=== PATIENT | female | born 1950 | race Caucasian/White ===

== ENCOUNTER 2017-03-19 18:49 | Emergency (ER) | payer MEDICARE, BC ==
[2017-03-19 18:58] VITALS: BP 158/89
[2017-03-19] MEDS ORDERED: BACITRACIN OINT TOP STA (20:35)
--- NOTE | 2017-03-19 20:38 | ED Physician Documentation ---
PD HPI UPPER EXT INJURY - Stated complaint Stated Complaint: L INDEX LAC - Chief complaint Chief Complaint: Ext Problem - History obtained from History obtained from: Patient - History of Present Illness Location: Left, Finger (index) Type of injury: Laceration Where injury occurred: Home Timing - onset: How many hours ago (Just prior to arrival.) - Additonal information Additional information: The patient is a 66-year-old female who cut her left index finger while slicing onions at home just prior to arrival. She denies any other injuries. She is right-hand dominant. Tetanus status is up-to-date. Review of Systems Constitutional: denies: Fever Skin: reports: Laceration (s) Neurologic: denies: Focal weakness, Numbness PD PAST MEDICAL HISTORY - Past Medical History Cardiovascular: Atrial fibrillation Endocrine/Autoimmune: None - Past Surgical History Past Surgical History: No - Present Medications Home Medications: Ambulatory Orders Medication Instructions Recorded Confirmed Levothyroxine [Synthroid] 25 mcg PO DAILY 03/19/17 03/19/17 - Allergies Allergies/Adverse Reactions: Allergies Allergy/AdvReac Type Severity Reaction Status Date / Time amoxicillin Allergy Rash Verified 03/19/17 18:58 - Social History Does the pt smoke?: No Smoking Status: Never smoker Does the pt drink ETOH?: Yes Does the pt have substance abuse?: No - Immunizations Immunizations are current?: Yes PD ED PE NORMAL - Vitals Vital signs reviewed: Yes (initially hypertensive.) - General General: Alert and oriented X 3, Well developed/nourished - HEENT HEENT: Atraumatic - Respiratory Respiratory: No respiratory distress - Derm Derm: No rash - Extremities Extremities: Other (There is a 1 cm laceration on the volar pad of the left index finger. Distal neurovascular is intact.) - Neuro Neuro: Alert and oriented X 3, No motor deficit, No sensory deficit Results - Vitals Vitals: Oxygen O2 Source Room air Procedures - Laceration (location) left index finger Length in cm: 1 Wound type: Curved, Into subcut fat Neurovascular status: Sensory intact, Motor intact, Vascular intact Anesthesia: Marcaine 0.25% with epi Wound Preparation: Hibiclens Skin layer closure: Nylon, Interrupted, Size #-0 - enter number (5), Sutures - enter # (4) Other: Patient tolerated well, No complications, Neurovascular intact, Tetanus UTD Complexity: Simple PD MEDICAL DECISION MAKING - ED course Complexity details: considered differential, d/w patient ED course: The patient's presentation is significant for simple laceration to the volar pad of the left index finger. Treatment in the emergency department included application of local anesthetic, thorough cleaning of the wound, repair with interrupted sutures, and application of antibiotic ointment and wound dressing. I discussed with her the expected course of healing, wound care and timing for suture removal, as well as potentially worrisome signs or symptoms that should prompt reevaluation in the emergency department. Departure - Departure Disposition: 01 Home, Self Care Clinical Impression: Finger laceration Qualifiers: Encounter type: initial encounter Qualified Code(s): S61.219A - Laceration without foreign body of unspecified finger without damage to nail, initial encounter Condition: Stable Instructions: ED Laceration Hand Follow-Up: MELECIO LEBRON MD [Primary Care Provider] - Comments: 1. Keep the wound clean and, and apply antibiotic ointment daily. 2. He can use Tylenol or ibuprofen if needed for discomfort. 3. Followup for suture removal in about 10 days. 4. Return to the emergency department if you develop any sign of infection, or otherwise worsening symptoms. Discharge Date/Time: 03/19/17 20:46
== END 2017-03-19 20:46 | disposition home or self-care (01) ==
LOC: ED 18:49
DX: S61.211A Laceration without foreign body of left index finger without damage to nail, initial encounter (principal); W26.0XXA Contact with knife, initial encounter; Y93.G1 Activity, food preparation and clean up; Y92.009 Unspecified place in unspecified non-institutional (private) residence as the place of occurrence of the external cause
CPT/HCPCS: 12001; 99282; 99283

== ENCOUNTER 2020-01-21 07:37 | Outpatient (CLI) | payer MEDICARE, BC ==
[2020-01-21 08:00] LABS: BASOPHILS % (AUTO) 0.8 %; EOSINOPHILS # (AUTO) 0.1 10^3/uL (0.0-0.7); HGB - HEMOGLOBIN 14.5 g/dL (12.0-16.0); LYMPHOCYTES # (AUTO) 2.1 10^3/uL (1.5-3.5); LYMPHOCYTES % (AUTO) 43.5 %; MEAN CORPUSCULAR HGB CONC 32.7 g/dL (32.0-36.0); MEAN CORPUSCULAR VOLUME 91.9 fL (81.0-99.0); MEAN PLATELET VOLUME 9.4 fL (7.9-10.8); MONOCYTES # (AUTO) 0.5 10^3/uL (0.0-1.0); MONOCYTES % (AUTO) 10.4 %; NEUTROPHILS % (AUTO) 42.1 %; PLT - PLATELET COUNT 266 10^3/uL (130-450); RED BLOOD COUNT 4.83 10^6/uL (4.20-5.40); RED CELL DISTRIBUTION WIDTH 13.3 % (12.0-15.0); WHITE BLOOD COUNT 4.7 x10^3/uL (4.8-10.8)
[2020-01-21 09:00] LABS: FREE T4 (FREE THYROXINE) 1.3 ng/dL (0.58-1.64)
[2020-01-21 09:05] LABS: ALBUMIN 3.8 g/dL (3.2-5.5); ALBUMIN/GLOBULIN RATIO 1.4 (1.0-2.2); ALKALINE PHOSPHATASE 50 IU/L (42-121); ALT ALANINE AMINOTRANSFERASE 20 IU/L (10-60); AST ASPARTATE AMINOTRANSFERASE 24 IU/L (10-42); BILIRUBIN,TOTAL 0.8 mg/dL (0.2-1.0); BUN - BLOOD UREA NITROGEN 23 mg/dL (6-20); CALCIUM 9.6 mg/dL (8.5-10.3); CARBON DIOXIDE - CO2 33 mmol/L (21-32); CHLORIDE 100 mmol/L (101-111); CHOL/HDL RATIO 2.6 (<4.4); CHOLESTEROL 172 mg/dL; CREATININE 0.9 mg/dL (0.4-1.0); GLUCOSE 107 mg/dL (70-100); HDL CHOLESTEROL 65 mg/dL; LDL CHOLESTEROL,CALCULATED 96 mg/dL; LDL/HDL RATIO 1.5 (<4.4); SODIUM 140 mmol/L (135-145); TOTAL PROTEIN 6.5 g/dL (6.7-8.2); VLDL CHOLESTEROL 11 mg/dL
[2020-01-21 09:26] LABS: HB2 TOTAL 14.9 g/dL; HEMOGLOBIN A1C 0.58 g/dL; HEMOGLOBIN A1C % 5.7 % (4.6-6.2)
== END 2020-01-21 07:38 | disposition home or self-care (01) ==
LOC: LAB 07:37
PROVIDERS: ATTEND Nurse Practitioner
DX: Z00.00 Encounter for general adult medical examination without abnormal findings (principal); R73.03 Prediabetes; E78.5 Hyperlipidemia, unspecified; E03.9 Hypothyroidism, unspecified; D72.819 Decreased white blood cell count, unspecified
CPT/HCPCS: 36415; 80053; 80061; 83036; 83721; 84439; 84443; 85025

== ENCOUNTER 2020-02-03 09:44 | Emergency (ER) | payer MEDICARE, BC ==
[2020-02-03 10:17] LABS: BASOPHILS % (AUTO) 0.6 %; EOSINOPHILS # (AUTO) 0.1 10^3/uL (0.0-0.7); EOSINOPHILS % (AUTO) 1.3 %; HGB - HEMOGLOBIN 16.1 g/dL (12.0-16.0); LYMPHOCYTES # (AUTO) 1.9 10^3/uL (1.5-3.5); LYMPHOCYTES % (AUTO) 28.5 %; MEAN CORPUSCULAR HEMOGLOBIN 29.2 pg (27.0-31.0); MEAN CORPUSCULAR HGB CONC 32.4 g/dL (32.0-36.0); MEAN CORPUSCULAR VOLUME 90.2 fL (81.0-99.0); MEAN PLATELET VOLUME 9.7 fL (7.9-10.8); MONOCYTES # (AUTO) 0.8 10^3/uL (0.0-1.0); MONOCYTES % (AUTO) 11.4 %; NEUTROPHILS # (AUTO) 3.9 10^3/uL (1.5-6.6); NEUTROPHILS % (AUTO) 57.9 %; PLT - PLATELET COUNT 304 10^3/uL (130-450); RED BLOOD COUNT 5.51 10^6/uL (4.20-5.40); RED CELL DISTRIBUTION WIDTH 13.2 % (12.0-15.0); WHITE BLOOD COUNT 6.7 x10^3/uL (4.8-10.8)
--- NOTE | 2020-02-03 10:22 | ED Physician Documentation ---
PD HPI CHEST PAIN - Stated complaint Stated Complaint: CHEST PRESSURE - Chief complaint Chief Complaint: Cardiac - History obtained from History obtained from: Patient - History of Present Illness Timing - onset: Today, Last night Timing - onset during: Rest Timing - duration: Hours (last couple hours last night and again this morning. No symptoms now.) Timing - details: Abrupt onset, Now resolved Quality: Pressure, Tightness, Aching. No: Sharp, Tearing, Pain Location: Substernal, Left chest Radiation: No: Jaw, Neck, Back Improved by: No: Rest Worsened by: No: Exertion (has been walking regularly without symptoms.) Associated symptoms: No: Shortness of air, Diaphoresis, Nausea, Feeling faint / dizzy, General Weakness, Palpitations Similar symptoms before: Diagnosis (had similar related to atrial fib in the past. No recent symptoms of it. Sees Dr. Antonio in [place]. Had stress test few years ago with similar. Had atrial fib episode that was cardioverted, and subsequent follow up and testing by Cardiology was fine. Has routine appt with Cardiology next Monday.) Review of Systems Constitutional: denies: Fever, Chills Nose: denies: Rhinorrhea / runny nose, Congestion Throat: denies: Sore throat Cardiac: denies: Palpitations, Pedal edema, Calf pain Respiratory: denies: Dyspnea, Cough GI: denies: Abdominal Pain, Abdominal Swelling, Nausea, Vomiting, Diarrhea, Bloody / black stool Musculoskeletal: denies: Extremity swelling Neurologic: denies: Generalized weakness, Focal weakness, Numbness, Near syncope, Altered mental status, Headache, Head injury Endocrine: denies: Weight loss, Easy bruising / bleeding PD PAST MEDICAL HISTORY - Past Medical History Cardiovascular: High cholesterol, Atrial fibrillation (few years ago, not recent) Respiratory: Sleep apnea, CPAP use Neuro: Alzhiemer's Endocrine/Autoimmune: HyPOthyroidism GI: Hepatitis 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 : None HEENT: None Psych: None Musculoskeletal: None Derm: None - Past Surgical History Past Surgical History: No - Present Medications Home Medications: Ambulatory Orders Medication Instructions Recorded Confirmed Aspirin 81 mg PO DAILY 02/03/20 02/03/20 Atorvastatin Calcium 10 mg PO DAILY PM 02/03/20 02/03/20 Calcium Carbonate/Vitamin D3 1 each PO DAILY 02/03/20 02/03/20 [Calcium 500-Vit D3 200 Tablet] Levothyroxine Sodium 100 mcg PO DAILY 02/03/20 02/03/20 Magnesium Oxide [Magnesium] 250 mg PO DAILY 02/03/20 02/03/20 - Allergies Allergies/Adverse Reactions: Allergies Allergy/AdvReac Type Severity Reaction Status Date / Time amoxicillin Allergy Rash Verified 03/19/17 18:58 - Social History Does the pt smoke?: No Smoking Status: Former smoker Does the pt drink ETOH?: Yes Does the pt have substance abuse?: No - Immunizations Immunizations are current?: Yes - POLST Patient has POLST: No PD ED PE NORMAL - Vitals Vital signs reviewed: Yes - General General: Alert and oriented X 3, No acute distress, Well developed/nourished - HEENT HEENT: Moist mucous membranes, Pharynx benign - Neck Neck: Supple, no meningeal sign, No adenopathy - Cardiac Cardiac: RRR, No murmur - Respiratory Respiratory: Clear bilaterally - Abdomen Abdomen: Soft, Non tender - Derm Derm: Normal color, Warm and dry - Extremities Extremities: No tenderness to palpate, Normal ROM s pain, No edema, No calf tenderness / cord - Neuro Neuro: Alert and oriented X 3, No motor deficit, Normal speech Results - Vitals Vitals: Vital Signs - 24 hr 02/03/20 02/03/20 02/03/20 10:01 10:09 11:07 Temperature 37.1 C Heart Rate 64 62 70 Respiratory 22 16 14 Rate Blood Pressure 176/86 H 159/95 H 133/78 H O2 Saturation 99 98 97 Oxygen O2 Source Room air - EKG (time done) 09:52 Rate: Rate (enter#) (64) Rhythm: NSR [place]: Normal Intervals: Normal ME QRS: Normal, Poor R wave progression Ischemia: Normal ST segments, T wave inversion (anterior leads but concordant with main QRS, so related to poor r-wave progression). No: ST elevation c/w ischemia, ST depression - Labs Labs: Laboratory Tests 02/03/20 02/03/20 02/03/20 10:03 10:03 10:03 WBC 6.7 RBC 5.51 H Hgb 16.1 H Hct 49.7 H MCV 90.2 MCH 29.2 MCHC 32.4 RDW 13.2 Plt Count 304 MPV 9.7 Neut # (Auto) 3.9 Lymph # (Auto) 1.9 [place] # (Auto) 0.8 Eos # (Auto) 0.1 Baso # (Auto) 0.0 Absolute Nucleated RBC 0.00 Nucleated RBC % 0.0 Sodium 138 Potassium 4.1 Chloride 98 L Carbon Dioxide 29 Anion Gap 11.0 BUN 25 H Creatinine 0.9 Estimated GFR (MDRD) 62 L Glucose 100 Calcium 10.1 Total Bilirubin 0.8 AST 22 ALT 18 Alkaline Phosphatase 56 Troponin I High Sens 3.4 Total Protein 7.3 Albumin 4.1 Globulin 3.2 Albumin/Globulin Ratio 1.3 Lipase 35 - Rads (name of study) chest xray Radiology: Prelim report reviewed (no acute process), See rad report PD MEDICAL DECISION MAKING - ED course Complexity details: considered differential (no exertional symptoms recently. Had rest CP for couple hours last ngiht and again this morning, with normal labs. Consider non cardiac, potential atrial fib episode (though she says her pulse oximeter showed HR 70s at time of symptoms).), d/w patient Departure - Departure Disposition: 01 Home, Self Care Clinical Impression: Chest pressure Condition: Stable Record reviewed to determine appropriate education?: Yes Instructions: ED Chest Pain Atypical Unkn Cause Follow-Up: Lopez Valles ARNP [Primary Care Provider] - Cecilia Antonio MD [Provider Admit Priv/Credential] - Comments: No signs of heart attack or obvious heart/lung cause for your symptoms based on your EKG chest x-ray and blood tests. Your blood pressure was elevated a bit first coming in but not necessarily high enough I would think that be the primary cause of your symptoms. See if you have any further episodes. Try to correlate heart rate and blood pressure if you can during the symptoms and see if it is consistently elevated blood pressure with those. 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 Otherwise stay well-hydrated and regular activity and see if any other symptoms develop such as cough or fevers or pain with eating or anything else to indicate other cause. Discharge Date/Time: 02/03/20 11:19
--- NOTE | 2020-02-03 10:30 | XRAY Report ---
Reason: Chest Pain Procedure Date: 02/03/2020 Accession Number: [id number] / [id number] Procedure: XR - Chest 1 View X-Ray CPT Code: 55001 Final Report FULL RESULT: PROCEDURE: Chest 1 View X-Ray INDICATIONS: Chest Pain TECHNIQUE: One view of the chest was acquired. COMPARISON: FINDINGS: Surgical changes and devices: None. Lungs and pleura: No pleural effusions or pneumothorax. Lungs are clear. Mediastinum: Mediastinal contours appear normal. Heart size is normal. Bones and chest wall: No suspicious bony lesions. Overlying soft tissues appear unremarkable. IMPRESSION: No acute process. Reviewed by: Torey Chavez MD on 02/03/2020 10:25 AM PDT Approved by: Torey Chavez MD on 02/03/2020 10:25 AM PDT Station ID: [id number]
[2020-02-03 10:33] LABS: ALBUMIN 4.1 g/dL (3.2-5.5); ALBUMIN/GLOBULIN RATIO 1.3 (1.0-2.2); BILIRUBIN,TOTAL 0.8 mg/dL (0.2-1.0); CALCIUM 10.1 mg/dL (8.5-10.3); CREATININE 0.9 mg/dL (0.4-1.0); TOTAL PROTEIN 7.3 g/dL (6.7-8.2)
[2020-02-03 11:08] VITALS: BP 133/78
== END 2020-02-03 11:19 | disposition home or self-care (01) ==
LOC: ED 09:44
DX: R07.89 Other chest pain (principal); R03.0 Elevated blood-pressure reading, without diagnosis of hypertension; I44.4 Left anterior fascicular block; G30.9 Alzheimer's disease, unspecified; F02.80 Dementia in other diseases classified elsewhere, unspecified severity, without behavioral disturbance, psychotic disturbance, mood disturbance, and anxiety; Z87.891 Personal history of nicotine dependence; Z79.82 Long term (current) use of aspirin
CPT/HCPCS: 36415; 71045; 80053; 83690; 84484; 85025; 93005; 99284

== ENCOUNTER 2022-02-19 08:00 | Outpatient (CLI) | payer MEDICARE, BC ==
--- NOTE | 2022-02-19 14:52 | XRAY Report ---
PROCEDURE: Chest 2 View X-Ray INDICATIONS: ACTIVE COVID/COUGH TECHNIQUE: 2 view(s) of the chest. COMPARISON: None. FINDINGS: Surgical changes and devices: None. Lungs and pleura: Hyperinflation and chronic interstitial changes noted. Mediastinum: Mediastinal contours are normal. Heart size is normal. Bones and chest wall: No suspicious bony abnormalities. Soft tissues appear unremarkable. IMPRESSION: Hyperinflation and chronic interstitial changes. No infiltrate Reviewed by: Aurelio Brown MD on 02/19/2022 1:50 PM AKDT Approved by: Aurelio Brown MD on 02/19/2022 1:50 PM AKDT Station ID: [id number]
== END 2022-02-19 23:59 | disposition home or self-care (01) ==
LOC: DI.S 08:00
PROVIDERS: ATTEND Registered Nurse
DX: R05.9 Cough, unspecified (principal)
CPT/HCPCS: 71046; U0004

== ENCOUNTER 2022-03-26 08:00 | Outpatient (CLI) | payer MEDICARE, BC | END 2022-03-26 23:59 | disposition home or self-care (01) | LOC: LAB.S 08:00 | PROVIDERS: ATTEND Physician Assistant | DX: N10 Acute pyelonephritis (principal) | CPT/HCPCS: 87086 ==

== ENCOUNTER 2022-07-20 14:18 | Outpatient (CLI) | payer MEDICARE, BC ==
--- NOTE | 2022-07-20 16:55 | XRAY Report ---
PROCEDURE: Ribs w/PA Chest LT INDICATIONS: CONTUSION OF LEFT FRONT WALL OF THORAX TECHNIQUE: 2 views of the left ribs were acquired, along with a single view chest. COMPARISON: Chest radiograph dated 02/19/2022 and 02/03/2020 FINDINGS: Surgical changes and devices: None. Bones and chest wall: No fractures or dislocations. No suspicious bony lesions. Overlying soft tis sues appear unremarkable. Lungs and pleura: No pleural effusions or pneumothorax. Lungs appear clear. Mediastinum: Mediastinal contours appear normal. Heart size is normal. IMPRESSION: No gross displaced left rib fracture is noted. No acute cardiopulmonary pathology. Reviewed by: Donal Self MD on 07/20/2022 4:54 PM PST Approved by: Donal Self MD on 07/20/2022 4:54 PM PST Station ID: [id number]
== END 2022-07-20 14:19 | disposition home or self-care (01) ==
LOC: DI.S 14:18
PROVIDERS: ATTEND Emergency Medicine
DX: S20.212A Contusion of left front wall of thorax, initial encounter (principal)